=== PATIENT | female | born 1995 | race American Indian/Alaskan Native ===

== ENCOUNTER 2016-05-28 13:20 | Emergency (ER) | payer SELFPAY ==
[2016-05-28 13:59] LABS: Basophils % (Auto) 0.8 % (0.0-1.8); Eosinophils % (Auto) 4.6 % (0.0-4.3); Hematocrit 41.7 % (30.3-42.9); Hemoglobin 13.4 gm/dl (10.1-14.3); Mean Corpuscular HGB Conc 32 % (30-34); Mean Corpuscular Hemoglobin 26 pg (28-32); Mean Corpuscular Volume 82 fl (79-97); Platelet Count 319 K/mm3 (140-440); Red Cell Distribution Width 13.5 % (13.2-15.2)
[2016-05-28 14:12] LABS: Anion Gap 19 mmol/L; Blood Urea Nitrogen 6 mg/dL (7-17); Calcium 9.1 mg/dL (8.4-10.2); Carbon Dioxide 22 mmol/L (22-30); Chloride 102.5 mmol/L (98-107); Glucose 86 mg/dL (65-100); Potassium 4.2 mmol/L (3.6-5.0); Sodium 139 mmol/L (137-145)
--- NOTE | 2016-05-28 14:12 | Emergency Department Report ---
ED Psych HPI - General Chief Complaint: Psych Stated Complaint: SUICIDAL Time Seen by Provider: 05/28/16 13:38 Source: EMS Mode of arrival: Ambulatory Limitations: No Limitations - History of Present Illness MD Complaint: suicidal ideation, feels depressed -: Sudden, This morning Associated Psychiatric Symptoms: depression, suicidal ideation History of same: No Quality: constant Improves With: none Worsens With: none Context: significant life stressor Associated Symptoms: denies: confusion, headache, shortness of breath, nausea, vomiting, syncope, insomnia Treatments Prior to Arrival: placed on mental he If Self Harm: admits thoughts of, has plan, intentional overdose - Related Data Home Medications Medication Instructions Recorded Confirmed Last Taken No Known Home Medications [No 05/28/16 05/28/16 Unknown Reported Home Medications] Allergies Allergy/AdvReac Type Severity Reaction Status Date / Time No Known Allergies Allergy Unverified 05/28/16 13:32 ED Review of Systems ROS: Stated complaint: SUICIDAL Other details as noted in HPI Comment: All other systems reviewed and negative ED Past Medical Hx - Past Medical History Previous Medical History?: No - Surgical History Past Surgical History?: No - Social History Smoking Status: Never Smoker Substance Use Type: None - Medications Home Medications: Home Medications Medication Instructions Recorded Confirmed Last Taken Type No Known Home Medications [No 05/28/16 05/28/16 Unknown History Reported Home Medications] ED Physical Exam - General Limitations: No Limitations General appearance: alert, in no apparent distress - Head Head exam: Present: atraumatic, normocephalic - Eye Eye exam: Present: normal appearance - ENT ENT exam: Present: mucous membranes moist - Neck Neck exam: Present: normal inspection - Respiratory Respiratory exam: Present: normal lung sounds bilaterally. Absent: respiratory distress - Cardiovascular Cardiovascular Exam: Present: regular rate, normal rhythm. Absent: systolic murmur, diastolic murmur, rubs, gallop - GI/Abdominal GI/Abdominal exam: Present: soft, normal bowel sounds - Extremities Exam Extremities exam: Present: normal inspection - Back Exam Back exam: Present: normal inspection - Psychiatric Psychiatric exam: Present: depressed, suicidal ideation. Absent: anxious, flat affect, manic, homicidal ideation - Skin Skin exam: Present: warm, dry, intact, normal color. Absent: rash ED Medical Decision Making - Lab Data Result diagrams: 05/28/16 13:43 05/28/16 13:43 Critical care attestation.: If time is entered above; I have spent that time in minutes in the direct care of this critically ill patient, excluding procedure time. ED Disposition Clinical Impression: Suicidal intent Disposition: DC/TX PSY HOSP/PSY UNIT Is pt being admited?: No Does the pt Need Aspirin: No Condition: Stable Referrals: PRIMARY CARE, [Primary Care Provider] - 3-5 Days
[2016-05-28 14:50] LABS: Urine Drugs of Abuse Note Disclamer
[2016-05-28 15:02] LABS: Bilirubin,Urine NEG (Negative); Blood,Urine SM (Negative); Ketones,Urine NEG (Negative); Leukocyte Esterase,Urine NEG (Negative); Mucus,Urine 2+ /HPF; Nitrite,Urine NEG (Negative); Protein,Urine <15 mg/dL mg/dL (Negative); Urobilinogen,Urine < 2.0 mg/dL (<2.0)
--- NOTE | 2016-05-28 20:42 | Emergency Department Report ---
Blank Doc - Documentation Documentation: Patient has been evaluated by mental health and cleared for discharge home. I have spoken with the patient. Patient states that she took the medication because she was having a headache. She states that her boyfriend was concerned that she was trying to kill herself. Patient denies saying that she wanted to kill herself. Form 1013 will be rescinded. Patient will be discharged home at this time.
[2016-05-28 21:11] VITALS: BP 115/70
== END 2016-05-28 21:10 | disposition home or self-care (01) ==
LOC: ED 13:20 → EEVIPCON 13:20 → ED 21:10
DX: R45.851 Suicidal ideations (principal)
CPT/HCPCS: 36415; 80048; 80307; 81001; 85025; 99285; G0480; 80320

== ENCOUNTER 2016-07-09 08:39 | Emergency (ER) | payer SELFPAY ==
[2016-07-09 09:29] LABS: Basophils % (Auto) 0.2 % (0.0-1.8); Eosinophils % (Auto) 4.3 % (0.0-4.3); Hematocrit 37.6 % (30.3-42.9); Hemoglobin 12.1 gm/dl (10.1-14.3); Mean Corpuscular HGB Conc 32 % (30-34); Mean Corpuscular Hemoglobin 26 pg (28-32); Mean Corpuscular Volume 82 fl (79-97); Platelet Count 341 K/mm3 (140-440); Red Cell Distribution Width 13.7 % (13.2-15.2); White Blood Count 13.4 K/mm3 (4.5-11.0)
[2016-07-09 09:54] LABS: Anion Gap 17 mmol/L; BUN/Creatinine Ratio 7.14; Blood Urea Nitrogen 5 mg/dL (7-17); Carbon Dioxide 23 mmol/L (22-30); Chloride 99.9 mmol/L (98-107); Glucose 120 mg/dL (65-100); Potassium 3.7 mmol/L (3.6-5.0); Sodium 136 mmol/L (137-145)
--- NOTE | 2016-07-09 10:05 | XRay Report ---
CHEST 2 VIEWS INDICATION: Shortness of breath. COMPARISON: None similar at this institution. FINDINGS: PA and lateral chest radiographs demonstrate slight limited inspiration with top normal heart size. Normal mediastinal and hilar contours. No large pleural effusions or CHF. Intact bones. CONCLUSION: No acute chest process, as described. Thank you for the opportunity to participate in this patient's care.
--- NOTE | 2016-07-09 11:20 | Emergency Department Report ---
ED General Adult HPI - General Chief complaint: Dyspnea/Respdistress Stated complaint: PAOLA Time Seen by Provider: 07/09/16 11:18 Source: patient Mode of arrival: Ambulatory Limitations: No Limitations - History of Present Illness Initial comments: Patient states that she has had a runny nose and a nonproductive cough for the past 3 days. She states that she's had some wheezing similar to her asthma. She intermittently uses a handheld inhaler but is out of one now. He states that she's had fever and perhaps some chills which were not shaking. Occasionally she has seen a brown phlegm. She denies chest pain. She denies any nausea vomiting or diarrhea. She has no chronic medical problems. -: Gradual, days(s) Location: chest (chest discomfort only upon cough) Consistency: intermittent, now resolved Improves with: none Worsens with: other Associated Symptoms: weakness - Related Data Previous Rx's Medication Instructions Recorded Last Taken Type Cetirizine HCl [ZyrTEC] 10 mg PO QDAY #14 tab.rapdis 07/09/16 Unknown Rx Allergies Allergy/AdvReac Type Severity Reaction Status Date / Time No Known Allergies Allergy Unverified 05/28/16 13:32 ED Review of Systems ROS: Stated complaint: PAOLA Other details as noted in HPI Constitutional: denies: chills, fever Eyes: denies: eye pain, eye discharge, vision change ENT: denies: ear pain, throat pain Respiratory: see HPI, cough. denies: shortness of breath, wheezing Cardiovascular: as per HPI, chest pain. denies: palpitations Endocrine: no symptoms reported Gastrointestinal: denies: abdominal pain, nausea, diarrhea Genitourinary: denies: urgency, dysuria, discharge Musculoskeletal: denies: back pain, joint swelling, arthralgia Skin: denies: rash, lesions Neurological: denies: headache, weakness, paresthesias Psychiatric: denies: anxiety, depression Hematological/Lymphatic: denies: easy bleeding, easy bruising ED Past Medical Hx - Past Medical History Previous Medical History?: Yes Hx Asthma: Yes Additional medical history: Seasonal allergy - Surgical History Past Surgical History?: No - Social History Smoking Status: Never Smoker Substance Use Type: None - Medications Home Medications: Home Medications Medication Instructions Recorded Confirmed Last Taken Type Cetirizine HCl [ZyrTEC] 10 mg PO QDAY #14 tab.rapdis 07/09/16 Unknown Rx ED Physical Exam - General Limitations: No Limitations General appearance: alert, in no apparent distress - Head Head exam: Present: atraumatic, normocephalic - Eye Eye exam: Present: normal appearance, PERRL, EOMI. Absent: scleral icterus - ENT ENT exam: Present: normal orophraynx (except for being somewhat dry), mucous membranes dry - Neck Neck exam: Present: normal inspection. Absent: tenderness, meningismus - Respiratory Respiratory exam: Present: normal lung sounds bilaterally. Absent: respiratory distress - Cardiovascular Cardiovascular Exam: Present: regular rate, normal rhythm. Absent: systolic murmur, diastolic murmur, rubs, gallop - GI/Abdominal GI/Abdominal exam: Present: soft, normal bowel sounds. Absent: distended, tenderness, guarding, rebound, rigid - Extremities Exam Extremities exam: Present: normal inspection - Back Exam Back exam: Present: normal inspection - Neurological Exam Neurological exam: Present: alert, oriented X3, CN II-XII intact. Absent: motor sensory deficit - Psychiatric Psychiatric exam: Present: normal affect, normal mood - Skin Skin exam: Present: warm, dry, intact, normal color. Absent: rash ED Course Vital Signs 07/09/16 07/09/16 07/09/16 09:05 10:57 11:00 Temperature 99.5 F Pulse Rate 130 H 114 H 113 H Pulse Rate [ Anterior Bilateral Throughout] Respiratory 25 H 23 Rate Respiratory Rate [Anterior Bilateral Throughout] Blood Pressure 110/72 115/67 113/64 O2 Sat by Pulse 99 96 96 Oximetry 07/09/16 07/09/16 07/09/16 11:04 12:00 13:00 Temperature 100.4 F H Pulse Rate 121 H 111 H Pulse Rate [ Anterior Bilateral Throughout] Respiratory 25 H 22 23 Rate Respiratory Rate [Anterior Bilateral Throughout] Blood Pressure 103/64 100/45 O2 Sat by Pulse 96 97 95 Oximetry 07/09/16 07/09/16 07/09/16 14:00 14:12 15:00 Temperature 98.6 F Pulse Rate 107 H 98 H Pulse Rate [ Anterior Bilateral Throughout] Respiratory 28 H 24 Rate Respiratory Rate [Anterior Bilateral Throughout] Blood Pressure 112/61 121/66 O2 Sat by Pulse 92 Oximetry 07/09/16 07/09/16 07/09/16 15:40 15:48 16:00 Temperature Pulse Rate 108 H Pulse Rate [ 95 H 100 H Anterior Bilateral Throughout] Respiratory 19 Rate Respiratory 22 22 Rate [Anterior Bilateral Throughout] Blood Pressure 114/69 O2 Sat by Pulse 96 Oximetry 07/09/16 17:00 Temperature Pulse Rate 97 H Pulse Rate [ Anterior Bilateral Throughout] Respiratory 18 Rate Respiratory Rate [Anterior Bilateral Throughout] Blood Pressure 102/63 O2 Sat by Pulse 96 Oximetry - Reevaluation(s) Reevaluation #1: The patient had a persistent tachycardia. She complained of chest pain with cough. Her family decided to exclude pulmonary embolism. A CTA was effective in doing so. The patient's tachycardia did ultimately improve. She had no significant chest discomfort in the emergency department nor dyspnea. She was given nebs. Her pulse oximetry was normal on discharge. Heart rate had improved. 07/09/16 17:52 ED Medical Decision Making - Lab Data Result diagrams: 07/09/16 09:20 07/09/16 09:20 Laboratory Results - last 24 hr 07/09/16 07/09/16 09:20 09:20 WBC 13.4 H RBC 4.60 Hgb 12.1 Hct 37.6 MCV 82 MCH 26 L MCHC 32 RDW 13.7 Plt Count 341 Lymph % (Auto) 5.8 L [place] % (Auto) 8.3 H Eos % (Auto) 4.3 Baso % (Auto) 0.2 Lymph # 0.8 L [place] # 1.1 H Eos # 0.6 H Baso # 0.0 Seg Neutrophils % 81.4 H Seg Neutrophils # 10.9 H Sodium 136 L Potassium 3.7 Chloride 99.9 Carbon Dioxide 23 Anion Gap 17 BUN 5 L Creatinine 0.7 Estimated GFR > 60 BUN/Creatinine Ratio 7.14 Glucose 120 H Calcium 9.0 - Radiology Data Radiology results: report reviewed interpreted by me: Symptoms reported. Radiologist mentions some nonspecific pulmonary hypertension and lymphadenopathy. I'm not sure of the significance of this. The patient will be referred for follow-up. Critical care attestation.: If time is entered above; I have spent that time in minutes in the direct care of this critically ill patient, excluding procedure time. ED Disposition Clinical Impression: Viral respiratory infection, Dehydration Disposition: DISCHARGED TO HOME OR SELFCARE Is pt being admited?: No Does the pt Need Aspirin: No Condition: Stable Instructions: Upper Respiratory Infection (ED), Viral Syndrome (ED) Additional Instructions: Increase fluids, rest, Tylenol ibuprofen if needed. Rx for antihistamine. Return any acute change or problem. Medical follow-up options are listed. Prescriptions: Cetirizine HCl [ZyrTEC] 10 mg PO QDAY #14 tab.rapdis Referrals: JERONIMO LEWIS MD [Staff Physician] - 2-3 Days [facility] [Provider Group] - 2-3 Days PRIMARY CARE, [Primary Care Provider] - 2-3 Days Time of Disposition: 17:56
[2016-07-09] MEDS ORDERED: NACL 0.9% 1000 ML 1,000 ML IV ONE ×2 (11:26→13:30)
[2016-07-09] MEDS ORDERED: TORADOL IV ONE (11:26)
[2016-07-09] MEDS ORDERED: TYLENOL PO ONE (11:26)
--- NOTE | 2016-07-09 14:00 | Admit Criteria Form ---
Admission Criteria Documentation: FEBRILE ILLNESS, WITHOUT FOCAL INFECTION Clinical Indications for Admission to Inpatient Care (Place 'X' for any and all applicable criteria): Admission is indicated for ANY ONE of the following (1)(2)(3): [ ] I. Bacteremia [ ]II. Suspected or identified specific infection requiring hospitalization (eg, meningitis, endocarditis) [X ]III. Hemodynamic instability [ ]IV. Altered mental status [ ]V. Failure or unavailability of outpatient antimicrobial treatment [ ]. Hypoxemia [ ]VII. Seizures [ ]VIII. High-risk febrile neutropenia [ ]IX. Need for parenteral antibiotic in patient who is likely to abuse vascular access device (eg, injection drug user) [A](7) [ ]X. Temperature greater than 104.9 degrees F (40.5 degrees C) (oral) [X ]XI. Inpatient admission required rather than observation care because of ANY ONE of the following: [ ]a) Specific infection identified that is too severe for outpatient treatment or observation care trial [ ]b) Metabolic disorder (eg, hypoglycemia, hyperglycemia, metabolic acidosis) that is severe or persistent [ ]c) Temperature greater than 103.1 degrees F (39.5 degrees C) ( oral) that is not responsive to observation care treatment [ ]d) IV fluid to replace significant ongoing (eg, for over 24 hours) losses (> 3 L/m2 per day) [ ]e) Supplemental oxygen or respiratory treatments for over 24 hours that is performable only in acute inpatient setting [ ]f) Parenteral nutrition regimen need that must be implemented on inpatient basis [ ]g) Strict or protective (eg, laminar flow) isolation [X ]h) Other condition, treatment or monitoring requiring inpatient admission Extended stay beyond goal length of stay may be needed for(1)(3) [ ]a) Sepsis or septic shock(22) [ ]b) Positive blood cultures [ ]c) Insufficient oral intake [ ]d) High-risk febrile neutropenia(29)(30) [ ]e) Continued fever and clinical instability [ ]f) Clinically active comorbid illness (e.g,heart failure, renal failure , diabetes) The original [facility] [employer] content created by [facility] has been revised. The portions of the content which have been revised are identified through the use of italic text or in bold, and [facility] has neither reviewed nor approved the modified material. All other unmodified content is copyright [facility]. Please see references footnoted in the original [facility] edition 2016
[2016-07-09] MEDS ORDERED: NORCO 5/325 ONE (14:25)
[2016-07-09] MEDS ORDERED: NORCO 5/325 PO ONE (14:33)
[2016-07-09] MEDS ORDERED: XOPENEX IH ONE (15:09)
[2016-07-09 15:56] LABS: Bacteria,Urine 1+ /HPF (Negative); Bilirubin,Urine NEG (Negative); Blood,Urine LG (Negative); Ketones,Urine NEG (Negative); Leukocyte Esterase,Urine SM (Negative); Mucus,Urine FEW /HPF; Nitrite,Urine NEG (Negative); Protein,Urine <15 mg/dL mg/dL (Negative); Urobilinogen,Urine < 2.0 mg/dL (<2.0)
--- NOTE | 2016-07-09 16:50 | Cat Scan Report ---
CTA CHEST INDICATION: Chest pain, difficulty breathing. COMPARISON: None similar. FINDINGS: Chest CTA performed following intravenous administration of 100 cc of Omnipaque 350. Rotational MIP's also obtained. Borderline cardiomegaly. No effusions. No aortic aneurysm, dissection or suspicious pulmonary arterial filling defects. Pulmonary arterial hypertension. Normal airway. Approximately 1.7 x 1.2 cm subcarinal lymph node, image 80, series 2. Mild bilateral hilar lymphoid soft tissue prominence also seen as measuring 2.2 x 1.3 cm on the right, axial image 90, series 2 while approximately 2.1 x 1 cm on the left, axial image 88. No size significant axillary lymphadenopathy. Unremarkable thyroid. Clear lungs. Slight nonspecific air filled distal esophageal prominence. Normal imaged upper abdomen. Unremarkable bones. Bilateral nipple piercing ornaments creating streak artifact incidentally noted. CONCLUSION: 1. Pulmonary arterial hypertension without CT evidence of pulmonary embolism. 2. Mild nonspecific bilateral hilar and subcarinal lymph nodes prominence/slight enlargement, as described. Thank you for the opportunity to participate in this patient's care.
[2016-07-09] MEDS ORDERED: BENADRYL PO ONE (17:37)
[2016-07-09 19:23] VITALS: BP 120/77
== END 2016-07-09 19:23 | disposition home or self-care (01) ==
LOC: ED 08:39
DX: J06.9 Acute upper respiratory infection, unspecified (principal); E86.0 Dehydration; J45.909 Unspecified asthma, uncomplicated
CPT/HCPCS: 36415; 71020; 71275; 80048; 81001; 81025; 84484; 85025; 93005; 93010; 94640; 96361; 96374; 99285; J1885; J7030; Q9967

== ENCOUNTER 2017-02-17 14:14 | Emergency (ER) | payer OTHER ==
[2017-02-17 14:31] VITALS: BP 112/71
[2017-02-17] MEDS ORDERED: PEPCID PO ONE (15:35)
[2017-02-17] MEDS ORDERED: BENADRYL IM ONE (15:35)
[2017-02-17] MEDS ORDERED: MOTRIN PO ONE (15:35)
[2017-02-17] MEDS ORDERED: CLEOCIN IM ONE (15:35)
--- NOTE | 2017-02-17 15:35 | Emergency Department Report ---
ED Allergic Reaction HPI - General Chief complaint: Upper Respiratory Infection Stated complaint: LIP/CHEST SWOLLEN Time Seen by Provider: 02/17/17 15:19 Source: patient, family Mode of arrival: Ambulatory Limitations: No Limitations - History of Present Illness Initial Comments: Patient here reports that she has right upper lip swelling and she doesn't know whether it's herpes or an allergic reaction. She said that she was using cleaning products and it touched her lip today and her lips started swelling up. She denies any shortness of breath, difficulty swallowing, coughing, wheezing or stridor. Denies any chest pain or tightness. Denies any coughing. She is also complaining of left breast redness, pain at 6 out of 10. Patient says she has had this in the past. Denies any personal history of breast cancer or family history of breast cancer. She did not take any over-the- counter medication. Pain feels tight and achy to her breast area. Patient had similar episode to that breast. She said it was infected because she had nipple ring in and she took it out it got better and she said she had nipple ring in this also and she took it out when swelling and redness came back. Denies any fever or chills. Denies any nausea or vomiting. Denies any discharge from her nipples. MD Complaint: allergic reaction (swelling to upper lip started prior to coming to the emergency room.), other (infection to left breast) Onset/Timin -: days(s) Exposure: other (cleaning product) Symptoms: lip swelling, other (redness , swelling and pain to left breast). denies: rash, itching, facial swelling, difficulty swallowing, difficulty breathing, orolingual swelling, hoarseness, syncopy, dizziness, nausea, vomiting , abdominal pain Severity: moderate (6 out of 10) Treatment Prior to Arrival: none Previous Allergy History: none - Related Data Previous Rx's Medication Instructions Recorded Last Taken Type Benzonatate [Tessalon Perles] 100 mg PO Q8HR PRN #14 capsule 07/09/16 Unknown Rx Cetirizine HCl [ZyrTEC] 10 mg PO QDAY 7 Days #7 tab.rapdis 02/17/17 Unknown Rx Clindamycin [Clindamycin CAP] 300 mg PO Q8H 10 Days #30 cap 02/17/17 Unknown Rx Ibuprofen [Motrin] 600 mg PO Q8H PRN 5 Days #15 tablet 02/17/17 Unknown Rx methylPREDNISolone [Medrol] 4 mg PO QAM 6 Days #1 tab.ds.pk 02/17/17 Unknown Rx Allergies Allergy/AdvReac Type Severity Reaction Status Date / Time No Known Allergies Allergy Unverified 05/28/16 13:32 ED Review of Systems ROS: Stated complaint: LIP/CHEST SWOLLEN Other details as noted in HPI Comment: All other systems reviewed and negative Constitutional: no symptoms reported Eyes: denies: eye pain, eye discharge, vision change ENT: other (swelling to right upper lip). denies: ear pain, throat pain, congestion Respiratory: no symptoms reported Cardiovascular: denies: chest pain, palpitations, dyspnea on exertion, orthopnea , edema, syncope, paroxysmal nocturnal dyspnea Gastrointestinal: denies: abdominal pain, nausea, vomiting, diarrhea Musculoskeletal: denies: back pain, joint swelling, myalgia Skin: rash (redness, swelling and pain to left breast) Neurological: numbness (right upper lip). denies: headache ED Past Medical Hx - Past Medical History Previous Medical History?: Yes Hx Asthma: Yes Additional medical history: Seasonal allergy - Surgical History Past Surgical History?: No - Family History Family history: no significant - Social History Smoking Status: Former Smoker Substance Use Type: None - Medications Home Medications: Home Medications Medication Instructions Recorded Confirmed Last Taken Type Benzonatate [Tessalon Perles] 100 mg PO Q8HR PRN #14 capsule 07/09/16 Unknown Rx Cetirizine HCl [ZyrTEC] 10 mg PO QDAY 7 Days #7 tab.rapdis 02/17/17 Unknown Rx Clindamycin [Clindamycin CAP] 300 mg PO Q8H 10 Days #30 cap 02/17/17 Unknown Rx Ibuprofen [Motrin] 600 mg PO Q8H PRN 5 Days #15 tablet 02/17/17 Unknown Rx methylPREDNISolone [Medrol] 4 mg PO QAM 6 Days #1 tab.ds.pk 02/17/17 Unknown Rx ED Physical Exam - General Limitations: No Limitations General appearance: alert, in no apparent distress - Head Head exam: Present: atraumatic, normocephalic, normal inspection - Eye Eye exam: Present: normal appearance, PERRL, EOMI. Absent: scleral icterus, conjunctival injection, periorbital swelling, periorbital tenderness Pupils: Present: normal accommodation - ENT ENT exam: Present: normal orophraynx, mucous membranes moist, TM's normal bilaterally, normal external ear exam, other (patient with small swelling to right upper lip area.). Absent: normal exam - Expanded ENT Exam Expanded Ear exam: Present: normal external inspection Mouth exam: Present: normal external inspection. Absent: drooling, trismus, muffled voice, tongue normal, tongue elevation, laceration Teeth exam: Present: normal inspection Throat exam: Positive: normal inspection, other (Uvula midline and oral airways patent). Negative: tonsillar erythema, tonsillomegaly, tonsillar exudate, R peritonsillar mass, L peritonsillar mass - Neck Neck exam: Present: normal inspection, full ROM. Absent: tenderness, meningismus, lymphadenopathy, thyromegaly - Expanded Neck Exam Expanded Neck exam: Absent: tenderness, midline deformity, anterior neck swelling, tracheal deviation - Respiratory Respiratory exam: Present: normal lung sounds bilaterally. Absent: respiratory distress, wheezes, rales, rhonchi, stridor, chest wall tenderness, accessory muscle use, decreased breath sounds, prolonged expiratory - Cardiovascular Cardiovascular Exam: Present: normal rhythm, tachycardia, normal heart sounds. Absent: systolic murmur, diastolic murmur - GI/Abdominal GI/Abdominal exam: Present: soft, normal bowel sounds. Absent: distended, tenderness, guarding, rebound, rigid - Extremities Exam Extremities exam: Present: normal inspection, full ROM, normal capillary refill , other (clubbing, cyanosis or edema. +2 pulses. Extremities no neurovascular compromise). Absent: tenderness, pedal edema, joint swelling, calf tenderness - Back Exam Back exam: Present: normal inspection, full ROM. Absent: tenderness, CVA tenderness (R), CVA tenderness (L), muscle spasm, paraspinal tenderness, vertebral tenderness, rash noted - Neurological Exam Neurological exam: Present: alert, oriented X3, normal gait, reflexes normal. Absent: motor sensory deficit - Psychiatric Psychiatric exam: Present: normal affect, normal mood - Skin Skin exam: Present: warm, dry, intact, erythema, other (reaction to lip). Absent: cyanosis, diaphoretic, urticaria, vesicles, petechiae, pallor, abrasion , ecchymosis - Expanded Skin Exam Expanded Type of lesion: Present: other (Cellulitis) Distribution of rash: other (left breast) Description of rash: Present: size (7 x 8 cm area of erythema surroundinAerola and extended outside of the areola.), tenderness (left breast), erythematous ( breast), swelling (breast), other (nipple discharge noted. No eczematous areas of skin.). Absent: vesicular, blisters, confluent, bullous, petechial, purpuic , urticarial, crusting, discharge, fluctuant, indurated ED Course Vital Signs 02/17/17 02/17/17 14:27 18:11 Temperature 99 F Pulse Rate 110 H 88 Respiratory 22 Rate Blood Pressure 112/71 O2 Sat by Pulse 100 Oximetry - Reevaluation(s) Reevaluation #1: 02/17/17 18:20 She given clindamycin 600 mg IM, Motrin 800 mg by mouth, Benadryl 50 mg IM and Solu-Medrol 125 mg IM. She was also given Axid 40 mg by mouth. Patient treated for minor allergic reaction and cellulitis of left breast. ED Medical Decision Making - Medical Decision Making ED course: She is stable throughout ED stay. Patient presented emergency room complaining of herpes to her right upper lip which on physical findings patient with localized allergic reaction from exposure to chemical that she was using to clean her house. Allergies was localized to her lip and she was not having any respiratory difficulties. Patient able to speak without any abnormalities in oropharynx or neck. She was also found to have cellulitis of her left breast which is recurrent. Patient's that she had an episode when she had nipple ringin and she was treated for antibiotic and she had her nipple ring in to get in it started swelling yesterday redness. Ridge Mohamud vital signs are stable she is afebrile. She was treated for minor allergic reaction and also for cellulitis in emergency room. Patient was given Benadryl 50 mg IM, Solu- Medrol 125 mg IM, Pepcid 40 mg by mouth for localized allergic reaction. Swelling to right upper lip subsided. She was also treated with clindamycin 600 mg IM and Motrin 800 mg by mouth for cellulitis of her left breast and pain. Patient said her pain is better. I discussed the patient that she needs to avoid putting a ring in her nipple since she is having recurrent infection and that she will need to follow up with her primary care physician in 2 days follow-up cellulitis. I discussed there is swelling to lip return, difficulty breathing, tightness in her throat, coughing, increasing redness and swelling to breast area, fever or chills to return to the emergency room [facility]ERNANDO otherwise follow-up with primary care and if she does not have a primary care she can follow-up at [facility]. patient discharge home with prescription for clindamycin, Motrin, Medrol Dosepak and Zyrtec Critical care attestation.: If time is entered above; I have spent that time in minutes in the direct care of this critically ill patient, excluding procedure time. ED Disposition Clinical Impression: Cellulitis of left breast, Breast pain, left Minor allergic reaction Qualifiers: Encounter type: initial encounter Qualified Code(s): T78.40XA - Allergy, unspecified, initial encounter Disposition: TO HOME OR SELFCARE Is pt being admited?: No Does the pt Need Aspirin: No Condition: Stable Instructions: Cellulitis (ED), Allergies (ED), Mammogram (ED) Additional Instructions: Please follow-up with your primary care physician and if you do not have a primary care physician follow-up at [facility] in 2 days. Take antibiotic as prescribed Keep affected area clean and dry. Followed discharge instruction on acute wound care . Please return to emergency room if you develop increasing redness, streaking, fever, difficulty moving in and the left forearm and increase in pain. Please return to the emergency room if you develop increasing lip swelling, cough, wheezing, stridor, difficulty swallowing or controlling in secretions. See referral given for [facility]. If you're cellulitis to breast does not get better with antibiotic in 2-3 days. Please follow-up with outside Medical Center and they can give you referral to outpatient mammogram Prescriptions: Cetirizine HCl [ZyrTEC] 10 mg PO QDAY 7 Days #7 tab.rapdis Clindamycin [Clindamycin CAP] 300 mg PO Q8H 10 Days #30 cap Ibuprofen [Motrin] 600 mg PO Q8H PRN 5 Days #15 tablet PRN Reason: Pain methylPREDNISolone [Medrol] 4 mg PO QAM 6 Days #1 tab.ds.pk Referrals: PRIMARY CARE, [Primary Care Provider] - 02/19/17 [facility] [Outside] - 02/19/17 [facility] [Provider Group] - 02/22/17 Forms: Accompanied Note, Work/School Release Form(ED)
== END 2017-02-17 18:50 | disposition home or self-care (01) ==
LOC: ED 14:14
DX: T78.40XA Allergy, unspecified, initial encounter (principal); N61.0 Mastitis without abscess; N64.4 Mastodynia; J45.909 Unspecified asthma, uncomplicated; Z87.891 Personal history of nicotine dependence; X58.XXXA Exposure to other specified factors, initial encounter
CPT/HCPCS: 96372; 99282; J1200; J2930

== ENCOUNTER 2017-05-29 14:36 | Emergency (ER) | payer OTHER ==
--- NOTE | 2017-05-29 14:51 | Event Note ---
Date: 05/29/17 Medical screening note: 21-year-old female presenting with cramping vaginal bleeding. Approximately 11 weeks , does not have an APPLICATION SOFTWARE DEVELOPER, reports no care. Hemodynamic stable, check labs, urinalysis, type and screen, ultrasound. Patient hemodynamic stable, may be triaged either Main ER or fast track, depending on bed availability. Vital Signs 05/29/17 14:40 Temperature 98.6 F Pulse Rate 88 Blood Pressure 105/63 O2 Sat by Pulse 98 Oximetry
[2017-05-29 14:59] LABS: Basophils % (Auto) 0.3 % (0.0-1.8); Eosinophils # (Auto) 0.3 K/mm3 (0.0-0.4); Eosinophils % (Auto) 3.2 % (0.0-4.3); Hematocrit 40.1 % (30.3-42.9); Hemoglobin 12.9 gm/dl (10.1-14.3); Lymphocytes # (Auto) 2.5 K/mm3 (1.2-5.4); Mean Corpuscular HGB Conc 32 % (30-34); Mean Corpuscular Hemoglobin 26 pg (28-32); Mean Corpuscular Volume 82 fl (79-97); Monocytes % (Auto) 10.1 % (0.0-7.3); Platelet Count 284 K/mm3 (140-440); Red Blood Count 4.88 M/mm3 (3.65-5.03); Red Cell Distribution Width 13.5 % (13.2-15.2)
--- NOTE | 2017-05-29 16:22 | Emergency Department Report ---
ED Female HPI - General Chief complaint: OB/Uterine Contractions Stated complaint: 11 WKS /VAGINAL BLEEDING Time Seen by Provider: 05/29/17 16:22 Source: patient, RN notes reviewed Mode of arrival: Ambulatory Limitations: No Limitations - History of Present Illness Initial comments: This is a 21-year-old female who was previously unknown to this provider, she is 1, para 0, she can't remember her exact period, and does not currently have a private SR VICE PRESIDENT doctor. Presents to the ER with mild vaginal bleeding. It has since resolved. Has no other complaints at this time. Reports recent vigorous sexual intercourse with her partner. Denies irritative urinary symptoms. MD Complaint: vaginal bleeding -: Gradual Severity: mild Quality: cramping Consistency: now resolved Improves with: none Worsens with: none Are you Now?: Yes Associated Symptoms: vaginal bleeding. denies: vaginal discharge, abdominal pain, nausea/vomiting, fever/chills, headaches, loss of appetite, dysuria, hematuria, rash, seizure, shortness of breath, syncope, weakness - Related Data Sexually active: Yes : 1 Para: 0 Previous Rx's Medication Instructions Recorded Last Taken Type Benzonatate [Tessalon Perles] 100 mg PO Q8HR PRN #14 capsule 07/09/16 Unknown Rx Cetirizine HCl [ZyrTEC] 10 mg PO QDAY 7 Days #7 tab.rapdis 02/17/17 Unknown Rx Clindamycin [Clindamycin CAP] 300 mg PO Q8H 10 Days #30 cap 02/17/17 Unknown Rx Ibuprofen [Motrin] 600 mg PO Q8H PRN 5 Days #15 tablet 02/17/17 Unknown Rx methylPREDNISolone [Medrol] 4 mg PO QAM 6 Days #1 tab.ds.pk 02/17/17 Unknown Rx Doxylamine Succinate/Vit B6 1 each PO QHS PRN #30 tablet. 05/29/17 Unknown Rx [Damon Elizalde 10-10 mg Tablet] Nitrofurantoin [place]/M-Cryst 100 mg PO Q12HR #14 capsule 05/29/17 Unknown Rx [Macrobid CAP] Vit Calc,Iron,Folic 1 each PO QDAY #30 tablet 05/29/17 Unknown Rx [ Vitamins] Allergies Allergy/AdvReac Type Severity Reaction Status Date / Time No Known Allergies Allergy Unverified 05/28/16 13:32 ED Review of Systems ROS: Stated complaint: 11 WKS /VAGINAL BLEEDING Other details as noted in HPI Comment: All other systems reviewed and negative ED Past Medical Hx - Past Medical History Hx Asthma: Yes Additional medical history: Seasonal allergy - Social History Smoking Status: Never Smoker Substance Use Type: None - Medications Home Medications: Home Medications Medication Instructions Recorded Confirmed Last Taken Type Benzonatate [Tessalon Perles] 100 mg PO Q8HR PRN #14 capsule 07/09/16 Unknown Rx Cetirizine HCl [ZyrTEC] 10 mg PO QDAY 7 Days #7 tab.rapdis 02/17/17 Unknown Rx Clindamycin [Clindamycin CAP] 300 mg PO Q8H 10 Days #30 cap 02/17/17 Unknown Rx Ibuprofen [Motrin] 600 mg PO Q8H PRN 5 Days #15 tablet 02/17/17 Unknown Rx methylPREDNISolone [Medrol] 4 mg PO QAM 6 Days #1 tab.ds.pk 02/17/17 Unknown Rx Doxylamine Succinate/Vit B6 1 each PO QHS PRN #30 tablet.dr 05/29/17 Unknown Rx [Diclegis Dr 10-10 mg Tablet] Nitrofurantoin [place]/M-Cryst 100 mg PO Q12HR #14 capsule 05/29/17 Unknown Rx [Macrobid CAP] Vit Calc,Iron,Folic 1 each PO QDAY #30 tablet 05/29/17 Unknown Rx [ Vitamins] ED Physical Exam - General Limitations: No Limitations General appearance: alert, in no apparent distress - Head Head exam: Present: atraumatic, normocephalic - Eye Eye exam: Present: normal appearance, EOMI. Absent: nystagmus - ENT ENT exam: Present: normal exam, normal orophraynx, mucous membranes moist, normal external ear exam - Neck Neck exam: Present: normal inspection, full ROM - Respiratory Respiratory exam: Present: normal lung sounds bilaterally. Absent: respiratory distress - Cardiovascular Cardiovascular Exam: Present: regular rate, normal rhythm, normal heart sounds. Absent: systolic murmur, diastolic murmur, rubs, gallop - GI/Abdominal GI/Abdominal exam: Present: soft, normal bowel sounds. Absent: distended, tenderness, guarding, rebound, rigid, pulsatile mass - External exam: Present: normal external exam Speculum exam: Present: normal speculum exam Bi-manual exam: Present: normal bi-manual exam, other (escorted by power nut runner operator CARMEN COELHO). Absent: cervical motion tendernes, adnexal tenderness, adnexal mass, uterine enlargement, uterine tenderness - Extremities Exam Extremities exam: Present: normal inspection, full ROM, normal capillary refill. Absent: pedal edema, joint swelling, calf tenderness - Back Exam Back exam: Present: normal inspection, full ROM. Absent: tenderness, CVA tenderness (R), paraspinal tenderness, vertebral tenderness - Neurological Exam Neurological exam: Present: alert, oriented X3, CN II-XII intact, normal gait, other (Extraocular movements intact. Tongue midline. No facial droop. Facial sensation intact to light touch in the V1, V2, V3 distribution bilaterally. 5 and 5 strength in 4 extremities.. Sensation is intact to light touch in 4 extremities.). Absent: motor sensory deficit - Psychiatric Psychiatric exam: Present: normal affect, normal mood - Skin Skin exam: Present: warm, dry, intact, normal color. Absent: rash ED Course Vital Signs 05/29/17 14:40 Temperature 98.6 F Pulse Rate 88 Blood Pressure 105/63 O2 Sat by Pulse 98 Oximetry - Reevaluation(s) Reevaluation #1: 05/29/17 19:07 Urinalysis initially is contaminated repeat sample is not contaminated and suggests a symptomatic bacteriuria. Patient will be discharged with Macrobid. Resting comfortably and in no distress. Reevaluation #2: 05/29/17 19:08 Labs 05/29/17 05/29/17 05/29/17 14:48 14:48 14:49 WBC 10.3 RBC 4.88 Hgb 12.9 Hct 40.1 MCV 82 MCH 26 L MCHC 32 RDW 13.5 Plt Count 284 Lymph % (Auto) 24.0 [place] % (Auto) 10.1 H Eos % (Auto) 3.2 Baso % (Auto) 0.3 Lymph # 2.5 [place] # 1.0 H Eos # 0.3 Baso # 0.0 Seg Neutrophils % 62.4 Seg Neutrophils # 6.4 HCG, Quant 57071 H Urine Color Urine Turbidity Urine pH Ur Specific [place] Urine Protein Urine Glucose (UA) Urine Ketones Urine Blood Urine Nitrite Urine Bilirubin Urine Urobilinogen Ur Leukocyte Esterase Urine WBC (Auto) Urine RBC (Auto) U Epithel Cells (Auto) Urine Bacteria (Auto) Urine WBC Clumps Urine Mucus Blood Type O POSITIVE Antibody Screen Negative 05/29/17 05/29/17 17:42 18:37 WBC RBC Hgb Hct MCV MCH MCHC RDW Plt Count Lymph % (Auto) [place] % (Auto) Eos % (Auto) Baso % (Auto) Lymph # [place] # Eos # Baso # Seg Neutrophils % Seg Neutrophils # HCG, Quant Urine Color Yellow Yellow Urine Turbidity Cloudy Clear Urine pH 6.0 6.0 Ur Specific [place] 1.019 1.010 Urine Protein 30 mg/dl <15 mg/dl Urine Glucose (UA) Neg Neg Urine Ketones 80 80 Urine Blood Neg Neg Urine Nitrite Neg Neg Urine Bilirubin Neg Neg Urine Urobilinogen 2.0 < 2.0 Ur Leukocyte Esterase Lg Lg Urine WBC (Auto) > 182.0 H 90.0 H Urine RBC (Auto) 13.0 2.0 U Epithel Cells (Auto) 19.0 H 1.0 Urine Bacteria (Auto) 1+ 1+ Urine WBC Clumps 2+ 2+ Urine Mucus 2+ 1+ Blood Type Antibody Screen ED Medical Decision Making - Lab Data Result diagrams: 05/29/17 14:48 Lab Results 05/29/17 05/29/17 05/29/17 Range/Units 14:48 14:48 14:49 WBC 10.3 (4.5-11.0) K/mm3 RBC 4.88 (3.65-5.03) M/mm3 Hgb 12.9 (10.1-14.3) gm/dl Hct 40.1 (30.3-42.9) % MCV 82 (79-97) fl MCH 26 L (28-32) pg MCHC 32 (30-34) % RDW 13.5 (13.2-15.2) % Plt Count 284 (140-440) K/mm3 Lymph % (Auto) 24.0 (13.4-35.0) % [place] % (Auto) 10.1 H (0.0-7.3) % Eos % (Auto) 3.2 (0.0-4.3) % Baso % (Auto) 0.3 (0.0-1.8) % Lymph # 2.5 (1.2-5.4) K/mm3 [place] # 1.0 H (0.0-0.8) K/mm3 Eos # 0.3 (0.0-0.4) K/mm3 Baso # 0.0 (0.0-0.1) K/mm3 Seg Neutrophils % 62.4 (40.0-70.0) % Seg Neutrophils # 6.4 (1.8-7.7) K/mm3 HCG, Quant 48501 H (0-4) mIU/mL Blood Type O POSITIVE Antibody Screen Negative Vital Signs 05/29/17 14:40 Temperature 98.6 F Pulse Rate 88 Blood Pressure 105/63 O2 Sat by Pulse 98 Oximetry - Radiology Data Radiology results: report reviewed, image reviewed Print Report Referring Physician: TONY SPENCER Patient Name: HERMAN DOMINIQUE Date of : 1995 Sex: Female Report Date: 2017-05-29 Report Status: [place] [address] Ultrasound Report Signed Patient: HERMAN DOMINIQUE MR#: [id number] : 1995 Acct:[id number] Age/Sex: 21 / F ADM Date: 05/29/17 Loc: ED Attending Dr: Ordering Physician: TONY SPENCER MD Date of Service: 05/29/17 Procedure(s): US OB transvaginal Accession Number(s): [id number] cc: TONY SPENCER MD FINAL REPORT EXAM: US OB TRANSVAGINAL HISTORY: vag bleed TECHNIQUE: Grayscale and color doppler ultrasound imaging of the pelvis was performed transabdominally and transvaginally. PRIORS: None. FINDINGS: Uterus: The uterus is homogeneous in echogenicity without focal mass. The uterus measures 11.1 x 7.0 x 6.7 centimeters. An intrauterine gestational sac, yolk sac and embryonic pole were identified. [place]-rump length is 4.2 centimeters corresponding with an estimated gestational age of 11 weeks and 1 day with an KACI of 12/17/2017. No evidence of subchorionic hemorrhage. Embryonic cardiac activity was detected at 168 beats per minute. Ovaries: Probable right corpus luteal cyst is seen measuring 1.5 centimeters. No left ovarian lesions. Normal flow is seen to the ovaries. The right ovary measures 3.0 x 2.0 x 2.2 centimeters. The left ovary measures 4.6 x 1.4 x 1.3 centimeters. Free fluid: None. IMPRESSION: Live intrauterine at 11 weeks and 1 day gestational age with an KACI of 12/17/2017. Transcribed By: MG Dictated By: TAD MORRISSEY MD Electronically Authenticated By: TAD MORRISSEY MD Signed Date/Time: 05/29/17 941 - Medical Decision Making Differential diagnosis, including but not limited to: Miscarriage, threatened miscarriage, urinary tract infection Assessment and plan: 21-year-old female with ultrasound confirmed intrauterine , benign abdominal examination, benign gynecologic examination, Rh+, urinalysis pending, history and physical consistent with threatened miscarriage , patient medically suitable to follow-up with outpatient gynecology, return precautions reviewed. Critical care attestation.: If time is entered above; I have spent that time in minutes in the direct care of this critically ill patient, excluding procedure time. ED Disposition Clinical Impression: Threatened miscarriage Disposition: DC-01 TO HOME OR SELFCARE Is pt being admited?: No Does the pt Need Aspirin: No Condition: Stable Instructions: Threatened Miscarriage (ED) Additional Instructions: Take medications as directed. Avoid consumption of alcohol, ibuprofen, Motrin, Naprosyn. Follow up as soon as possible with an SR VICE PRESIDENT doctor to start care. Avoid sex and sexual activity until cleared by a primary care OB /PRODUCER ASSISTANT doctor. Cultures were sent today, results will be available in the next 3- 5 days. Have a primary care doctor or nursing unit clerk contact the medical records department to obtain culture results. Return to the ER right away with new pain , worsened pain, migration of pain, bleeding more than 2 pads soaked per hour, lightheadedness, confusion, inability to tolerate liquid feeds. Prescriptions: Doxylamine Succinate/Vit B6 [Damon Elizalde 10-10 mg Tablet] 1 each PO QHS PRN #30 tablet.dr CASAS Reason: Nausea Nitrofurantoin [place]/M-Cryst [Macrobid CAP] 100 mg PO Q12HR #14 capsule Vit Calc,Iron,Folic [ Vitamins] 1 each PO QDAY #30 tablet Referrals: PRIMARY CARE, [Primary Care Provider] - 3-5 Days [facility] [Provider Group] - 3-5 Days [facility] [Provider Group] - 3-5 Days [facility] [Provider Group] - 3-5 Days
--- NOTE | 2017-05-29 16:56 | Ultrasound Report ---
FINAL REPORT EXAM: US OB < = 14 WEEKS FETUS HISTORY: vag bleed TECHNIQUE: Grayscale and color doppler ultrasound imaging of the pelvis was performed transabdominally and transvaginally. PRIORS: None. FINDINGS: Uterus: The uterus is homogeneous in echogenicity without focal mass. The uterus measures 11.1 x 7.0 x 6.7 centimeters. An intrauterine gestational sac, yolk sac and embryonic pole were identified. [place]-rump length is 4.2 centimeters corresponding with an estimated gestational age of 11 weeks and 1 day with an KACI of 12/17/2017. No evidence of subchorionic hemorrhage. Embryonic cardiac activity was detected at 168 beats per minute. Ovaries: Probable right corpus luteal cyst is seen measuring 1.5 centimeters. No left ovarian lesions. Normal flow is seen to the ovaries. The right ovary measures 3.0 x 2.0 x 2.2 centimeters. The left ovary measures 4.6 x 1.4 x 1.3 centimeters. Free fluid: None. IMPRESSION: Live intrauterine at 11 weeks and 1 day gestational age with an KACI of 12/17/2017.
[2017-05-29 17:52] LABS: Bacteria,Urine 1+ /HPF (Negative); Bilirubin,Urine NEG (Negative); Blood,Urine NEG (Negative); Color,Urine Yellow (Yellow); Mucus,Urine 2+ /HPF
[2017-05-29 17:53] LABS: WBC,Urine > 182.0 /HPF (0.0-6.0)
[2017-05-29 18:53] LABS: Bacteria,Urine 1+ /HPF (Negative); Bilirubin,Urine NEG (Negative); Blood,Urine NEG (Negative); Color,Urine Yellow (Yellow); Mucus,Urine 1+ /HPF; Protein,Urine <15 mg/dL mg/dL (Negative); Urobilinogen,Urine < 2.0 mg/dL (<2.0)
[2017-05-29 19:25] VITALS: BP 108/64
== END 2017-05-29 19:24 | disposition home or self-care (01) ==
LOC: ED 14:36
DX: O20.0 Threatened abortion (principal); Z3A.11 11 weeks gestation of pregnancy
CPT/HCPCS: 36415; 76801; 76817; 81001; 84702; 85025; 86850; 86900; 86901; 87210; 87591; 99284

== ENCOUNTER 2017-08-20 00:46 | Emergency (ER) | payer OTHER ==
[2017-08-20 04:42] LABS: Alanine Aminotransferase 10 units/L (7-56); Albumin 3.9 g/dL (3.9-5); BUN/Creatinine Ratio 13; Blood Urea Nitrogen 4 mg/dL (7-17); Calcium 9.2 mg/dL (8.4-10.2); Hemolysis Index 61
[2017-08-20 04:44] LABS: Basophils % (Auto) 0.3 % (0.0-1.8); Eosinophils # (Auto) 0.2 K/mm3 (0.0-0.4); Eosinophils % (Auto) 1.4 % (0.0-4.3); Hematocrit 33.8 % (30.3-42.9); Hemoglobin 11.6 gm/dl (10.1-14.3); Lymphocytes # (Auto) 2.6 K/mm3 (1.2-5.4); Lymphocytes % (Auto) 15.5 % (13.4-35.0); Mean Corpuscular HGB Conc 34 % (30-34); Mean Corpuscular Hemoglobin 28 pg (28-32); Mean Corpuscular Volume 83 fl (79-97); Monocytes # (Auto) 1.2 K/mm3 (0.0-0.8); Monocytes % (Auto) 7.1 % (0.0-7.3); Platelet Count 281 K/mm3 (140-440); Red Cell Distribution Width 15.2 % (13.2-15.2)
[2017-08-20 04:55] LABS: HCG Qualitative,Urine Positive (Negative)
[2017-08-20 05:01] LABS: Bilirubin,Urine NEG (Negative); Blood,Urine NEG (Negative); Color,Urine Yellow (Yellow); Mucus,Urine 3+ /HPF; Protein,Urine <15 mg/dL mg/dL (Negative)
[2017-08-20] MEDS ORDERED: KEFLEX PO ONE (07:25)
--- NOTE | 2017-08-20 07:25 | Emergency Department Report ---
ED Abdominal Pain HPI - General Chief Complaint: Abdominal Pain Stated Complaint: ABD PAIN / MOUTH PAIN Time Seen by Provider: 08/20/17 07:19 Source: patient Mode of arrival: Ambulatory Limitations: No Limitations - History of Present Illness Initial Comments: Patient complains of mild low abdominal pain on and off. She also said that had gone these swollen and red. She denies any fever or chills. She also denies any nausea vomiting or diarrhea. Complaint: abdominal pain -: Gradual, days(s) (3) Location: suprapubic Radiation: none Migration to: no migration Severity: mild Severity scale (0 -10): 2 Quality: cramping, sharp Consistency: intermittent, now resolved Improves With: nothing Worsens With: nothing Associated Symptoms: denies other symptoms Treatments Prior to Arrival: other ([facility]) - Related Data Previous Rx's Medication Instructions Recorded Last Taken Type Benzonatate [Tessalon Perles] 100 mg PO Q8HR PRN #14 capsule 07/09/16 Unknown Rx Cetirizine HCl [ZyrTEC] 10 mg PO QDAY 7 Days #7 tab.rapdis 02/17/17 Unknown Rx Clindamycin [Clindamycin CAP] 300 mg PO Q8H 10 Days #30 cap 02/17/17 Unknown Rx Ibuprofen [Motrin] 600 mg PO Q8H PRN 5 Days #15 tablet 02/17/17 Unknown Rx methylPREDNISolone [Medrol] 4 mg PO QAM 6 Days #1 tab.ds.pk 02/17/17 Unknown Rx Doxylamine Succinate/Vit B6 1 each PO QHS PRN #30 tablet. 05/29/17 Unknown Rx [Damon Elizalde 10-10 mg Tablet] Nitrofurantoin [place]/M-Cryst 100 mg PO Q12HR #14 capsule 05/29/17 Unknown Rx [Macrobid CAP] Vit Calc,Iron,Folic 1 each PO QDAY #30 tablet 05/29/17 Unknown Rx [ Vitamins] Cephalexin [Keflex] 500 mg PO Q8HR #21 cap 08/20/17 Unknown Rx Allergies Allergy/AdvReac Type Severity Reaction Status Date / Time No Known Allergies Allergy Verified 08/20/17 01:11 ED Review of Systems ROS: Stated complaint: ABD PAIN / MOUTH PAIN Other details as noted in HPI Comment: All other systems reviewed and negative Constitutional: denies: chills, fever Eyes: denies: vision change ENT: other (gum swelling and redness.). denies: ear pain, dental pain Respiratory: no symptoms reported. denies: shortness of breath Cardiovascular: denies: chest pain, palpitations, dyspnea on exertion, syncope Endocrine: no symptoms reported Gastrointestinal: abdominal pain. denies: nausea, vomiting, diarrhea Genitourinary: denies: urgency, dysuria, frequency, hematuria Musculoskeletal: denies: back pain, joint swelling Skin: denies: rash, change in color Neurological: denies: headache, numbness, paresthesias Psychiatric: denies: anxiety, depression Hematological/Lymphatic: denies: easy bleeding, easy bruising ED Past Medical Hx - Past Medical History Previous Medical History?: No Hx Asthma: Yes Additional medical history: Seasonal allergy - Surgical History Past Surgical History?: No - Social History Smoking Status: Never Smoker - Medications Home Medications: Home Medications Medication Instructions Recorded Confirmed Last Taken Type Benzonatate [Tessalon Perles] 100 mg PO Q8HR PRN #14 capsule 07/09/16 Unknown Rx Cetirizine HCl [ZyrTEC] 10 mg PO QDAY 7 Days #7 tab.rapdis 02/17/17 Unknown Rx Clindamycin [Clindamycin CAP] 300 mg PO Q8H 10 Days #30 cap 02/17/17 Unknown Rx Ibuprofen [Motrin] 600 mg PO Q8H PRN 5 Days #15 tablet 02/17/17 Unknown Rx methylPREDNISolone [Medrol] 4 mg PO QAM 6 Days #1 tab.ds.pk 02/17/17 Unknown Rx Doxylamine Succinate/Vit B6 1 each PO QHS PRN #30 tablet. 05/29/17 Unknown Rx [Diclegis Dr 10-10 mg Tablet] Nitrofurantoin [place]/M-Cryst 100 mg PO Q12HR #14 capsule 05/29/17 Unknown Rx [Macrobid CAP] Vit Calc,Iron,Folic 1 each PO QDAY #30 tablet 05/29/17 Unknown Rx [ Vitamins] Cephalexin [Keflex] 500 mg PO Q8HR #21 cap 08/20/17 Unknown Rx ED Physical Exam - General Limitations: No Limitations General appearance: alert, in no apparent distress - Head Head exam: Present: atraumatic, normocephalic, normal inspection - Eye Eye exam: Present: normal appearance, PERRL, EOMI Pupils: Present: normal accommodation - ENT ENT exam: Present: normal exam, normal orophraynx, mucous membranes moist - Neck Neck exam: Present: normal inspection, full ROM. Absent: tenderness - Respiratory Respiratory exam: Present: normal lung sounds bilaterally. Absent: respiratory distress, wheezes, rhonchi - Cardiovascular Cardiovascular Exam: Present: regular rate, normal rhythm, normal heart sounds - GI/Abdominal GI/Abdominal exam: Present: soft. Absent: distended, tenderness, guarding, rebound, normal bowel sounds - Extremities Exam Extremities exam: Present: normal inspection, full ROM, normal capillary refill - Back Exam Back exam: Present: normal inspection, full ROM - Neurological Exam Neurological exam: Present: alert, oriented X3, CN II-XII intact - Psychiatric Psychiatric exam: Present: normal affect, normal mood - Skin Skin exam: Present: warm, dry, intact, normal color ED Course Vital Signs 08/20/17 08/20/17 08/20/17 00:46 01:03 02:08 Temperature 98.3 F 98.3 F Pulse Rate 87 83 76 Respiratory 18 18 Rate Blood Pressure 115/72 115/72 103/61 Blood Pressure [Left] O2 Sat by Pulse 99 99 100 Oximetry 08/20/17 08/20/17 08/20/17 02:13 02:18 02:23 Temperature Pulse Rate 77 87 83 Respiratory Rate Blood Pressure Blood Pressure [Left] O2 Sat by Pulse 100 100 100 Oximetry 08/20/17 08/20/17 08/20/17 02:28 02:33 02:38 Temperature Pulse Rate 81 84 85 Respiratory Rate Blood Pressure Blood Pressure [Left] O2 Sat by Pulse 100 99 100 Oximetry 08/20/17 08/20/17 08/20/17 02:43 02:48 02:53 Temperature Pulse Rate 80 79 79 Respiratory Rate Blood Pressure Blood Pressure [Left] O2 Sat by Pulse 100 100 100 Oximetry 08/20/17 08/20/17 07:55 07:56 Temperature Pulse Rate 75 Respiratory 16 18 Rate Blood Pressure Blood Pressure 112/73 [Left] O2 Sat by Pulse 99 Oximetry ED Medical Decision Making - Lab Data Result diagrams: 08/20/17 03:57 08/20/17 03:57 - Radiology Data Radiology results: report reviewed, image reviewed - Medical Decision Making Round ligament pain. Gingivitis. Critical care attestation.: If time is entered above; I have spent that time in minutes in the direct care of this critically ill patient, excluding procedure time. ED Disposition Clinical Impression: Gingivitis, Pain of round ligament during Disposition: TO HOME OR SELFCARE Is pt being admited?: No Does the pt Need Aspirin: No Condition: Stable Instructions: Labor/ Labor Instructions, Threatened Miscarriage (GEN), Acute Abdominal Pain (GEN) Additional Instructions: Follow-up with your Lithographer Helper within the next 24 hours. Return to the ED if your condition worsens. Prescriptions: Cephalexin [Keflex] 500 mg PO Q8HR #21 cap Referrals: MARIO ALBERTO MONTES MD [Primary Care Provider] - 7 Days Forms: [facility] Discharge Summary Print Language: GREEK
[2017-08-20] MEDS ORDERED: TYLENOL PO ONE (07:26)
--- NOTE | 2017-08-20 09:12 | Ultrasound Report ---
OB sonogram: History: Abdominal pain. Findings: Gestation: Single Position: Breech Amniotic Fluid: Normal LUPE = cm Placenta: Anterior Placental Grade: 0 Heart Rate: 163 BPM Cervical length: 4.4 cm (Normal > 3 cm) NEUROANATOMY VISUALIZED: Normal Choroid Plexus Cisterna Magnum Cerebellum Lateral Ventricle ANATOMY VISUALIZED: Normal Stomach Kidneys Bladder Diaphragm 4 Chamber Heart Heart 3 Vessel Cord Abd. Cord Insert SPINE VISUALIZED: Normal Longitudinal BPD: 5.5 cm = 22 w 6 d HC: 22.2 cm = 24 w 2 AC: 18.5 cm = 23 w 2 d FL: 4.3 cm = 24 w 1 d HC/AC Ratio: 1.2 Cephalic Index: 71.8 Estimated Weight: 619 grams LMP: 03/10/17 Clinical age = 23 w 2 d EDC: 12/15/17 US Gest. Age = 23 w 5 d EDC: 12/12/17
[2017-08-20 09:47] VITALS: BP 106/53
== END 2017-08-20 09:48 | disposition home or self-care (01) ==
LOC: ED 00:46 → EDSTATUS 01:32 → TRG 01:34 → EDSTATUS 03:18 → ED 09:48
DX: O26.892 Other specified pregnancy related conditions, second trimester (principal); R10.2 Pelvic and perineal pain; O99.612 Diseases of the digestive system complicating pregnancy, second trimester; O99.512 Diseases of the respiratory system complicating pregnancy, second trimester; J45.909 Unspecified asthma, uncomplicated; Z3A.23 23 weeks gestation of pregnancy
CPT/HCPCS: 36415; 59025; 76805; 80053; 81001; 81025; 85025; 99284

== ENCOUNTER 2017-09-04 06:49 | Emergency (ER) | payer OTHER ==
[2017-09-04 07:48] VITALS: BP 112/63
--- NOTE | 2017-09-04 08:22 | Emergency Department Report ---
Minor Respiratory - HPI Chief Complaint: Sore Throat Stated Complaint: SORE THROAT; BODY ACHES Time Seen by Provider: 09/04/17 07:55 Duration: 2 Days Pain Location: Throat Severity: moderate Minor Respiratory: Yes Sore Throat, Yes Able to Tolerate Fluids, Yes Cough, Yes Fever, No Rhinorrhea, No Ear Pain, No Sick Contacts, No Hemoptysis, No Chest Pain, No Shortness of Breath Other History: This is a 21-year-old -[place] female who presents with a fever, sore throat, and body aches for 2 days. Patient reports symptoms increased last night around 10 PM. She is 6 months and has not taken anything for symptom relief. She has not been around any other sick contacts. She is having congestion and fever along with the sore throat. Patient reports she had wheezing symptoms originally started. She have a history of asthma and currently using albuterol inhaler more which resolved wheezing. Denies nausea or vomiting, chest pain, syncope, shortness of breath, and abdominal pain. ED Review of Systems ROS: Stated complaint: SORE THROAT; BODY ACHES Other details as noted in HPI Constitutional: fever. denies: chills, diaphoresis, malaise, weakness ENT: throat pain, congestion. denies: ear pain, dental pain, hearing loss, epistaxis Respiratory: denies: cough, shortness of breath, wheezing Cardiovascular: denies: chest pain, palpitations, edema, syncope Endocrine: no symptoms reported Gastrointestinal: denies: abdominal pain, nausea, vomiting, diarrhea Musculoskeletal: denies: back pain, joint swelling, arthralgia, myalgia Neurological: denies: headache, weakness, paresthesias Psychiatric: denies: anxiety, depression ED Past Medical Hx - Past Medical History Previous Medical History?: Yes Hx Asthma: Yes Additional medical history: Seasonal allergy - Surgical History Past Surgical History?: No - Social History Smoking Status: Never Smoker Substance Use Type: None - Medications Home Medications: Home Medications Medication Instructions Recorded Confirmed Last Taken Type Benzonatate [Tessalon Perles] 100 mg PO Q8HR PRN #14 capsule 07/09/16 Unknown Rx Cetirizine HCl [ZyrTEC] 10 mg PO QDAY 7 Days #7 tab.rapdis 02/17/17 Unknown Rx Clindamycin [Clindamycin CAP] 300 mg PO Q8H 10 Days #30 cap 02/17/17 Unknown Rx Ibuprofen [Motrin] 600 mg PO Q8H PRN 5 Days #15 tablet 02/17/17 Unknown Rx methylPREDNISolone [Medrol] 4 mg PO QAM 6 Days #1 tab.ds.pk 02/17/17 Unknown Rx Doxylamine Succinate/Vit B6 1 each PO QHS PRN #30 tablet. 05/29/17 Unknown Rx [Diclegis Dr 10-10 mg Tablet] Nitrofurantoin [place]/M-Cryst 100 mg PO Q12HR #14 capsule 05/29/17 Unknown Rx [Macrobid CAP] Vit Calc,Iron,Folic 1 each PO QDAY #30 tablet 05/29/17 Unknown Rx [ Vitamins] Cephalexin [Keflex] 500 mg PO Q8HR #21 cap 08/20/17 Unknown Rx Fluticasone [Flonase] 1 spray NS QDAY #1 bottle 09/04/17 Unknown Rx guaiFENesin [Guaifenesin] 400 mg PO BID #14 tablet 09/04/17 Unknown Rx Minor Respiratory Exam - Exam General: Vital signs noted. No distress. Alert and acting appropriately. HEENT: Yes Pharyngeal Erythema, Yes Moist Mucous Membranes, No Pharyngeal Exudates (swollen tonsils without exudate), No Rhinorrhea, No Conjuctival Injection, No Frontal Tenderness, No Maxillary Tenderness Ear: Neither TM Bulge, Neither TM Erythema, Neither EAC Pain, Neither EAC Discharge Neck: Yes Supple, No Adenopathy Lungs: Yes Good Air Exchange, Yes Cough, No Wheezes, No Ronchi, No Stridor, No Labored Respirations, No Retractions, No Use of Accessory Muscles, No Other Abnormal Lung Sounds Heart: Yes Regular, No Murmur Abdomen: Yes Normal Bowel Sounds, No Tenderness, No Peritoneal Signs Skin: No Rash, No Edema Neurologic: Alert and oriented, no deficits. Musculoskeletal: Unremarkable. ED Course Vital Signs 09/04/17 09/04/17 07:38 07:41 Temperature 99.4 F Pulse Rate 114 H Respiratory 18 Rate Blood Pressure 112/63 112/63 O2 Sat by Pulse 98 Oximetry ED Medical Decision Making - Medical Decision Making This is a 21-year-old female with sore throat and fever for 2 days. Patient has a history of asthma and currently 6 months . Patient was examined by me and stable. No distress noted. Vitals are normal. Rapid strep obtained and negative. Physical findings susceptible of nasopharyngitis. Take tylenol for pain. Start Flonase and guaifenesin. Discussed plan with patient and she agreed with plan to treat outpatient. Discharged home. Follow up with PCP or OB/ HEARING HEALTH TECHNICIAN in 48-72 hours. Critical care attestation.: If time is entered above; I have spent that time in minutes in the direct care of this critically ill patient, excluding procedure time. ED Disposition Clinical Impression: Nasopharyngitis acute, Sore throat (viral) Disposition: TO HOME OR SELFCARE Is pt being admited?: No Does the pt Need Aspirin: No Condition: Stable Instructions: Cold Symptoms (ED), Upper Respiratory Infection (ED) Additional Instructions: Increase fluid intake and rest. Wash hands frequently. Continue taking tylenol to control fever and lozenges for sore throat. F/U with Primary Care Provider. Return to ER if fever, SOB, or difficulty breathing after 48 hours of supportive care. Prescriptions: Fluticasone [Flonase] 1 spray NS QDAY #1 bottle guaiFENesin [Guaifenesin] 400 mg PO BID #14 tablet Referrals: [facility] [Outside] - 3-5 Days [facility] [Outside] - 3-5 Days [facility] [Outside] - 3-5 Days Time of Disposition: 08:47 Print Language: SOUTH AFRICAN
[2017-09-04] MEDS ORDERED: ROBITUSSIN PO ONE ×2 (08:42→09:00)
[2017-09-04] MEDS ORDERED: ROBITUSSIN ONE (08:47)
[2017-09-04] MEDS ORDERED: GUAIFENESIN DM SYRUP PO ONE (09:00)
== END 2017-09-04 09:14 | disposition home or self-care (01) ==
LOC: ED 06:49
DX: J00 Acute nasopharyngitis [common cold] (principal); J02.9 Acute pharyngitis, unspecified; J45.909 Unspecified asthma, uncomplicated
CPT/HCPCS: 87116; 87430

== ENCOUNTER 2017-12-07 21:43 | Outpatient (CLI) | payer BC, OTHER ==
[2017-12-07 21:59] VITALS: BP 106/61
[2017-12-07] MEDS ORDERED: VISTARIL PO ONE (22:21)
== END 2017-12-07 22:40 | disposition home or self-care (01) ==
LOC: TRG 21:43
PROVIDERS: ATTEND Obstetrics & Gynecology
DX: O47.1 False labor at or after 37 completed weeks of gestation (principal); Z3A.38 38 weeks gestation of pregnancy
CPT/HCPCS: 59025; Q0177